=== PATIENT | male | born 1945 | race Caucasian/White ===

== ENCOUNTER → 2017-02-24 | Outpatient (CLI) | payer MEDICARE ==
[~2017-02-24] MED LIST: ANDROGEL1.25 GM TP; ASA325 MG PO; BENADRYL-DPS25 MG PO; CIALIS5 MG PO; CLEOCIN HCL150 MG PO; CYMBALTA30 MG PO; DELTASONE DPS20 MG PO; FLOMAX DPS0.4 MG PO; LASIX DPS40 MG PO; LOTRIMIN DPS15 GM TP; MIRALAX PACKET17 GM PO; MIRAPEX1 MG PO; NORCO 10-325 T1 EACH PO; PRILOSEC DPS20 MG PO; PROBIOTIC1 EAC1 PO; SENOKOT S1 TAB PO; SOMA-DPS350 MG PO; THERA1 EACH PO; TYLENOL DPS325 MG PO; ULTRAM DPS50 MG PO
== END | disposition home or self-care (01) ==
LOC: RAD.S 09:23
DX: H53.2 Diplopia (principal); D72.820 Lymphocytosis (symptomatic)